=== PATIENT | female | born 1970 | race African-American/Black ===

== ENCOUNTER 2016-12-17 05:49 | Emergency (ER) | payer SELFPAY ==
[~2016-12-17] VITALS: Ht 167.6 cm; Wt 84.8 kg
[2016-12-17 06:57] LABS: Urine Bilirubin Negative (Negative); Urine Color Yellow (Yellow); Urine Glucose Normal (Normal); Urine Ketone Negative (Negative); Urine Mucus FEW (None Seen); Urine Nitrite Negative (Negative); Urine RBC 51 /hpf (0 - 4); Urine Squamous Epithelial Cell FEW /hpf (<5); Urine Urobilinogen Normal (Negative); Urine pH 6.5 (5.0-8.0)
[2016-12-17 06:59] VITALS: BP 125/92
[2016-12-17 07:44] LABS: Urine Blood 2+ /uL (Negative)
== END 2016-12-17 08:19 | disposition home or self-care (01) ==
LOC: ER 05:52
DX: N23 Unspecified renal colic (principal); N39.0 Urinary tract infection, site not specified; N20.0 Calculus of kidney; R91.1 Solitary pulmonary nodule; E11.9 Type 2 diabetes mellitus without complications; I10 Essential (primary) hypertension; Z88.6 Allergy status to analgesic agent
CPT/HCPCS: 74176; 81001; 81025